=== PATIENT | female | born 1950 | race Caucasian/White ===

== ENCOUNTER → 2018-03-14 07:50 | Outpatient (CLI) | payer MEDICARE, OTHER, SELFPAY ==
[2018-03-14 09:01] LABS: Add Manual Diff / Slide Review NO; Basophils Percent Auto 0.6 % (0-2); Eosinophils Percent Auto 1.9 % (2-4); Hematocrit 42.9 % (36-46); Lymphocytes Percent Auto 54.5 % (25-40); Mean Corpuscular Volume 97.2 fL (80-100); Monocytes Percent Auto 6.2 % (3-14); Neutrophils Absolute Auto 2300 /uL (3000-5900); Neutrophils Percent Auto 36.8 % (50-75); Platelet Count 256 X10^3/uL (150-400); Red Blood Cell Count 4.42 X10^6/uL (4.0-5.2); Red Cell Distribution Width 12.9 % (11.6-14.8); White Blood Cell Count 6.2 X10^3/uL (4.5-11.0)
[2018-03-14 09:11] LABS: Alanine Aminotransferase 24 IU/L (9-52); Albumin 4.5 g/dL (3.5-5.0); Albumin Globulin Ratio 1.6 (1.0-2.8); Alkaline Phosphatase 37 U/L (38-126); Aspartate Aminotransferase 29 IU/L (14-36); Bilirubin Total 1.3 mg/dL (0.2-1.3); Blood Urea Nitrogen 15 mg/dL (7-17); Calcium 9.6 mg/dL (8.4-10.2); Carbon Dioxide 28 mmol/L (22-32); Chloride 105 mmol/L (98-107); Cholesterol 275 mg/dL (140-199); Estimated Glomerular Filt Rate 55.1 mL/min (>60); Globulin 2.8 g/dL (1.7-4.1); Glucose 95 mg/dL (80-110); HDL Cholesterol 86 mg/dL (40-60); HEMOLYSIS < 15 (0-50); LDL Cholesterol Calculated 175 mg/dL (<100); Potassium 4.4 mmol/L (3.4-5.1); Sodium 143 mmol/L (137-145); Total Protein 7.3 g/dL (6.3-8.2); Triglycerides 72 mg/dL (35-150)
[2018-03-14 09:30] LABS: Free T3, Triiodothyronine Free 2.69 pg/mL (2.77-5.27); Free T4, Direct Thyroxine 0.63 ng/dL (0.78-2.19)
[2018-03-14 09:44] LABS: Thyroid Stimulating Hormone 5.84 uIU/mL (0.47-4.68)
== END ==
PROVIDERS: PCP Internal Medicine; Visit Provider Internal Medicine
DX: E03.9 Hypothyroidism, unspecified (principal); R32 Unspecified urinary incontinence; E78.5 Hyperlipidemia, unspecified
CPT/HCPCS: 36415; 80053; 80061; 84439; 84443; 84481; 85025

== ENCOUNTER 2018-03-22 10:41 | Emergency (ER) | payer MEDICARE, OTHER, SELFPAY ==
[2018-03-22 10:45] VITALS: BP 131/87; PULSE 58; RESP 18; TEMP 36.1; O2SAT 100
--- NOTE | 2018-03-22 11:20 | ED_ITS ---
HPI - Trauma General Chief Complaint: Trauma Stated Complaint: FALL Time Seen by Provider: 03/22/18 11:20 Source: patient Mode of arrival: ambulatory Limitations: no limitations History of Present Illness HPI narrative: Patient is an otherwise healthy 59-year-old female here for evaluation of a fall that she sustained approximately 4 days ago. Patient states that she was walking in socks on a wood floor caring a glass of water when she slipped on a towel that was on the floor. She did state that she fell and hit her head. She is not on anticoagulation. She states she was dazed afterwards but did not lose consciousness. She also states that she hurt her left elbow. She did not come to be evaluated at that time. She has going about her daily activities for the past several days. She has developed bruising around both of her eyes and also on the left frontal portion of her forehead. She also states that she has generally had body aches since the event. No neck pain Related Data Home Medications Medication Instructions Recorded Confirmed cholecalciferol (vitamin D3) 2,000 iu PO Q DAY #0 09/17/11 03/22/18 [Vitamin D3] brimonidine [Alphagan P] 1 drp OPHTHALMIC (EYE) BID 03/22/18 03/22/18 brimonidine [Mirvaso] 1 applic TOPICAL DAILY 03/22/18 03/22/18 diazepam [Valium] 5 mg PO PRN 03/22/18 03/22/18 dorzolamide-timolol 1 drp OPHTHALMIC (EYE) BID 03/22/18 03/22/18 latanoprost 1 drp OPHTHALMIC (EYE) BEDTIME 03/22/18 03/22/18 zolpidem 10 mg PO BEDTIME PRN 03/22/18 03/22/18 Previous Rx's Medication Instructions Recorded dicyclomine 10 mg PO BID PRN #60 cap 06/06/17 atovaquone-proguanil [Malarone] 1 tab PO SEE INSTRUCTIONS #20 tab 08/23/17 levothyroxine 50 mcg tablet 25 mcg PO QAM #90 tab 02/10/18 Allergies Allergy/AdvReac Type Severity Reaction Status Date / Time TOPICAL ANTIBIOTICS Allergy Mild skin Uncoded 03/16/18 11:00 blistering and ulcerations 01/07/14 Review of Systems Constitutional Denies fatigue, Denies fever(s), Denies frequent falls, Reports headache(s) and Denies weakness Eyes Denies blurry vision, Denies change in vision, Denies diplopia, Denies irritation and Denies loss of vision ENT Ears, Nose, Mouth, and Throat: Denies dental pain, Denies vertigo, Denies dizziness, Reports headache(s) and Denies mouth pain Cardiovascular Denies chest pain, Denies syncope, Denies palpitations and Denies dyspnea Respiratory Denies cough and Denies dyspnea Gastrointestinal Gastrointestinal: Denies abdominal pain, Denies nausea and Denies vomiting Genitourinary Denies dysuria Musculoskeletal Denies myalgias, Denies arthralgias and Denies tingling Integumentary/Breasts Comments: Bruising on the left forehead and around both of her eyes. Neurologic Denies behavioral changes, Denies vertigo, Denies dizziness, Denies syncope, Denies frequent falls, Reports headache(s), Denies loss of vision, Denies seizure-like activity, Denies tingling, Denies paresthesias and Denies weakness Psychiatric Denies behavioral changes Endocrine Denies fatigue and Denies palpitations Hematologic/Lymphatic Denies easy bleeding and Denies easy bruising PFSH Medical History Hypothyroid (Acute) Surgical History No pertinent past surgical history (Acute) Social History Smoking Status: Never smoker Exam Initial Vital Signs Initial Vital Signs: Vital Signs Temperature 97.0 F L 03/22/18 10:45 Pulse Rate 58 L 03/22/18 10:45 Respiratory Rate 18 03/22/18 10:45 Blood Pressure 131/87 03/22/18 10:45 Pulse Oximetry 100 03/22/18 10:45 Const General: cooperative, healthy appearing, comfortable, well developed, well groomed and No acute distress Orientation: alert, awake and oriented x3 HENME Head: hematoma, No palpable skull fracture and raccoon eyes Ears: TM's normal bilaterally Nose: external nose normal Face and sinus: sinuses nontender, face symmetric, no abrasions, ecchymosis bilaterally and no edema Mouth: oral mucosae normal and tongue normal Teeth and gingiva: dentition normal Eyes Eyelids: eyelids normal Conjunctivae: conjunctivae normal Pupils: PERRL EOM: EOM intact bilaterally Resp Effort & Inspection: normal respiratory effort Auscultation: clear to auscultation bilaterally Cardio Rate: regular rate Rhythm: regular rhythm Pulses: radial pulses present GI Inspection: non-distended Palpation: soft Back/Spine/Pelvis Cervical Spine: No cervical muscular tenderness, No pain with cervical ROM, No step off deformity and No cervical ROM abnormal Skin General: ecchymosis Neuro General: alert and oriented x3 Cranial Nerves: CN's II-XI intact bilaterally Cognition: normal cognition Speech: speech normal Gait: normal gait Motor: muscle tone normal throughout Extrem General: normal to inspection and capillary refill normal Right upper extremity: normal to inspection Left upper extremity: normal to inspection Right lower extremity: normal to inspection Left lower extremity: normal to inspection Psych Appearance: grossly normal and well kempt Course Orders Ordered: ED Orders 03/22/18 11:51 CT facial bones wo con Stat CT head/brain wo con Stat Vital Signs - 8 hr 03/22/18 12:31 Pulse Rate 97 H Respiratory Rate 18 Blood Pressure [Left Arm] 121/84 Pulse Oximetry 97 MDM - Trauma Imaging Data CT facial bones: Radiologist's impression: PROCEDURE: CT FACIAL BONES WO CON INDICATIONS: fall with bilateral eye contusion TECHNIQUE: Noncontrast 2.5 mm thick axial images acquired from the mandible through the frontal sinuses, with coronal and sagittal reformatting. For radiation dose reduction, the following was used: automated exposure control, adjustment of mA and/or kV according to patient size. COMPARISON: None. FINDINGS: Image quality: Excellent. Bones and teeth: Orbital louis are intact. Sinus louis show no fracture or deformity. Nasal bones and septum are intact. Visualized portions of the mandible demonstrate no fractures or subluxation. Zygomatic arches are intact. Pterygoid plates are intact. Visualized portions of the skull base and auditory canals are intact. Sinuses: Paranasal sinuses are aerated, without fluid levels, mucosal thickening, or mucoceles. Mastoid air cells are aerated. Soft tissues: No edema, masses, or fluid collections. No enlarged lymph nodes. No soft tissue lacerations or debris. Vascular: Visualized vascular structures appear normal in the absence of contrast. Bony vascular foramina and canals are intact. IMPRESSION: No fracture. Dictated by: Pasha Salinas M.D. on 03/22/2018 at 12:04 Approved by: Pasha Salinas M.D. on 03/22/2018 at 12:05 CT scan - head: Radiologist's impression: PROCEDURE: CT HEAD/BRAIN WO CON INDICATIONS: fall with left frontal contusion TECHNIQUE: Noncontrast 4.5 mm thick angled axial sections acquired from the foramen magnum to the vertex, with coronal and sagittal reformats. For radiation dose reduction, the following was used: automated exposure control, adjustment of mA and/or kV according to patient size. COMPARISON: None. FINDINGS: Image quality: Excellent. CSF spaces: Basal cisterns are patent. No extra-axial fluid collections. The ventricles are symmetric in size and shape. Brain: No intracranial bleeds or masses. There is cerebral volume loss for age , with resultant ventricular and sulcal prominence. There is a 6 mm low density focus within the brainstem at the pontomedullary junction. There are periventricular and deep white matter chronic small vessel ischemic changes. There is intracranial internal carotid artery atherosclerosis. Skull and face: Left frontal scalp hematoma is present. Calvarium and visualized facial bones appear intact, without suspicious lesions. Sinuses: Visualized sinuses and mastoids are clear. IMPRESSION: 1. No acute intracranial abnormality. 2. Small indeterminate low density focus within the brainstem as described above , which may be related to a chronic infarct. Nonemergent brain MRI with and without intravenous contrast could be performed to further assess for less likely, more aggressive etiologies, if clinically indicated. Dictated by: Pasha Salinas M.D. on 03/22/2018 at 12:05 Approved by: Pasha Salinas M.D. on 03/22/2018 at 12:08 [facility] Narrative Medical decision making narrative: Patient without fracture seen on the CT scan. She does have ecchymosis around both her eyes. We did discuss this. She was given a projected course of her bruising. She has no restrictions. She was given return precautions. She expressed understanding and agreement with plan Discharge Plan Departure Patient Disposition: Home Clinical Impression: Contusion of scalp, Contusion of face, Fall Discharge Date/Time: 03/22/18 12:53 Interventions: ED Discharge Assessment Last Done: 03/22/18 12:53 Instructions: How to Prevent Falls Activity Restrictions/Additional Instructions: There was an incidental finding on the head CT today that carried with a recommendation for a nonemergent outpatient MRI. Discussed this with your primary care doctor at her next appointment. Return to the emergency department for any new or worsening symptoms Prescriptions: No Action cholecalciferol (vitamin D3) [Vitamin D3] 2,000 UNIT capsule 2,000 iu PO Q DAY Qty: 0 RF: 0 dicyclomine 10 MG capsule 10 mg PO BID PRNQty: 60 RF: 0 atovaquone-proguanil [Malarone] 250 MG/100 MG tablet 1 tab PO SEE INSTRUCTIONS Qty: 20 RF: 0 levothyroxine 50 mcg tablet 25 mcg PO QAM Qty: 90 RF: 2 latanoprost 0.005 % drops 1 drp ophthalmic (eye) BEDTIME RF: 0 dorzolamide-timolol 22.3-6.8 mg/mL drops 1 drp ophthalmic (eye) BID RF: 0 zolpidem 10 mg tablet 10 mg PO BEDTIME PRN (Reason: Insomnia) RF: 0 brimonidine [Alphagan P] 0.1 % drops 1 drp ophthalmic (eye) BID RF: 0 brimonidine [Mirvaso] 0.33 % gel with pump 1 applic Topical DAILY RF: 0 diazepam [Valium] 5 mg tablet 5 mg PO PRN RF: 0
--- NOTE | 2018-03-22 11:51 | DI.CT.S_ITS ---
PROCEDURE: CT FACIAL BONES WO CON INDICATIONS: fall with bilateral eye contusion TECHNIQUE: Noncontrast 2.5 mm thick axial images acquired from the mandible through the frontal sinuses, with coronal and sagittal reformatting. For radiation dose reduction, the following was used: automated exposure control, adjustment of mA and/or kV according to patient size. COMPARISON: None. FINDINGS: Image quality: Excellent. Bones and teeth: Orbital louis are intact. Sinus louis show no fracture or deformity. Nasal bones and septum are intact. Visualized portions of the mandible demonstrate no fractures or subluxation. Zygomatic arches are intact. Pterygoid plates are intact. Visualized portions of the skull base and auditory canals are intact. Sinuses: Paranasal sinuses are aerated, without fluid levels, mucosal thickening, or mucoceles. Mastoid air cells are aerated. Soft tissues: No edema, masses, or fluid collections. No enlarged lymph nodes. No soft tissue lacerations or debris. Vascular: Visualized vascular structures appear normal in the absence of contrast. Bony vascular foramina and canals are intact. IMPRESSION: No fracture. Dictated by: Pasha Salinas M.D. on 03/22/2018 at 12:04 Approved by: Pasha Salinas M.D. on 03/22/2018 at 12:05
--- NOTE | 2018-03-22 11:51 | DI.CT.S_ITS ---
PROCEDURE: CT HEAD/BRAIN WO CON INDICATIONS: fall with left frontal contusion TECHNIQUE: Noncontrast 4.5 mm thick angled axial sections acquired from the foramen magnum to the vertex, with coronal and sagittal reformats. For radiation dose reduction, the following was used: automated exposure control, adjustment of mA and/or kV according to patient size. COMPARISON: None. FINDINGS: Image quality: Excellent. CSF spaces: Basal cisterns are patent. No extra-axial fluid collections. The ventricles are symmetric in size and shape. Brain: No intracranial bleeds or masses. There is cerebral volume loss for age, with resultant ventricular and sulcal prominence. There is a 6 mm low density focus within the brainstem at the pontomedullary junction. There are periventricular and deep white matter chronic small vessel ischemic changes. There is intracranial internal carotid artery atherosclerosis. Skull and face: Left frontal scalp hematoma is present. Calvarium and visualized facial bones appear intact, without suspicious lesions. Sinuses: Visualized sinuses and mastoids are clear. IMPRESSION: 1. No acute intracranial abnormality. 2. Small indeterminate low density focus within the brainstem as described above, which may be related to a chronic infarct. Nonemergent brain MRI with and without intravenous contrast could be performed to further assess for less likely, more aggressive etiologies, if clinically indicated. Dictated by: Pasha Salinas M.D. on 03/22/2018 at 12:05 Approved by: Pasha Salinas M.D. on 03/22/2018 at 12:08
[2018-03-22 12:31] VITALS: BP 121/84; PULSE 97; RESP 18; O2SAT 97
== END 2018-03-22 12:53 | disposition home or self-care (01) ==
PROVIDERS: Emergency Provider Emergency Medicine; Family Provider Internal Medicine; PCP Internal Medicine
DX: S00.03XA Contusion of scalp, initial encounter (principal); S00.83XA Contusion of other part of head, initial encounter; W01.0XXA Fall on same level from slipping, tripping and stumbling without subsequent striking against object, initial encounter
CPT/HCPCS: 70450; 70486; 99282; 99284

== ENCOUNTER → 2018-04-18 13:01 | Outpatient (CLI) | payer MEDICARE, OTHER, SELFPAY ==
[2018-04-18 13:55] LABS: Estimated Glomerular Filt Rate > 60.0 mL/min (>60)
== END ==
PROVIDERS: Family Provider Internal Medicine; PCP Internal Medicine; Visit Provider Internal Medicine
DX: Z01.812 Encounter for preprocedural laboratory examination (principal)
CPT/HCPCS: 36415; 82565

== ENCOUNTER → 2018-04-19 15:54 | Outpatient (CLI) | payer MEDICARE, OTHER, SELFPAY ==
--- NOTE | 2018-04-19 15:57 | DI.MRI.S_ITS ---
PROCEDURE: MR HEAD/BRAIN WO/W CON INDICATIONS: abnormal CT TECHNIQUE: Noncontrast axial T1 spin echo, axial T2 fast spin echo, sagittal and axial FLAIR, coronal T2 fast spin echo, axial gradient echo, axial diffusion and ADC through the brain. After the administration of contrast, axial and coronal 3D VIBE or T1 spin echo with fat saturation through the brain. COMPARISON: [facility], CT, CT HEAD/BRAIN WO CON, 03/22/2018, 11:44. FINDINGS: Image quality: Excellent. CSF Spaces: Basal cisterns are patent. No extra-axial fluid collections. Ventricles are normal in size and shape. Brain: No midline shift. No intracranial bleeds or masses. No abnormal intracranial enhancement. The brainstem appears normal. Diffusion-weighted images demonstrate no acute ischemic insults. No chronic ischemic insults. Normal intravascular flow voids are present. Skull and face: Calvarial marrow is normal in signal. Orbits appear normal. Sinuses: Sinuses and mastoids appear clear. IMPRESSION: The medullary portion of the brainstem at the axial level of the foramen magnum is very well-visualized by this MR examination and no underlying lesion is identified. The prior CT scan had raise concern for a 6 mm hypodense lesion in that area and this area now is seen to be entirely normal. No followup recommended. Dictated by: Ever Ham M.D. on 04/19/2018 at 16:54 Approved by: Ever Ham M.D. on 04/19/2018 at 16:56
== END ==
PROVIDERS: Family Provider Internal Medicine; PCP Internal Medicine; Visit Provider Internal Medicine
DX: R93.0 Abnormal findings on diagnostic imaging of skull and head, not elsewhere classified (principal)
CPT/HCPCS: 70553

== ENCOUNTER → 2018-10-02 13:14 | Outpatient (CLI) | payer MEDICARE, OTHER, SELFPAY ==
--- NOTE | 2018-10-02 | DI.MG.S_ITS ---
BILATERAL DIGITAL SCREENING MAMMOGRAM 3D/2D WITH CAD: 10/02/2018 CLINICAL: Routine screening. Family history of breast cancer. Comparison is made to exams dated: 09/08/2017 mammogram, 08/13/2016 mammogram, and 07/16/2014 mammogram - [facility]. There are scattered fibroglandular elements in both breasts. Current study was also evaluated with a Computer Aided Detection (CAD) system. No significant masses, calcifications, or other findings are seen in either breast. There has been no significant interval change. IMPRESSION: NEGATIVE There is no mammographic evidence of malignancy. A 1 year screening mammogram is recommended. This exam was interpreted at Station ID: [id number]. NOTE: For mammograms, a report in lay terms will be sent to the patient. Approximately 15% of breast malignancies will not be visualized mammographically. In the management of a palpable breast mass, a negative mammogram must not discourage biopsy of a clinically suspicious lesion. Electronically Signed By: Ventura robb/ana:10/02/2018 17:36:03 letter sent: Normal Exam ACR BI-RADS Category 1: Negative [id number]
== END ==
PROVIDERS: Family Provider Internal Medicine; PCP Internal Medicine; Visit Provider Internal Medicine
DX: Z12.31 Encounter for screening mammogram for malignant neoplasm of breast (principal); Z80.3 Family history of malignant neoplasm of breast
CPT/HCPCS: 77063; 77067

== ENCOUNTER → 2019-07-09 14:32 | Outpatient (CLI) | payer MEDICARE, OTHER, SELFPAY | PROVIDERS: PCP Internal Medicine; Visit Provider Internal Medicine | DX: M85.88 Other specified disorders of bone density and structure, other site (principal); Z78.0 Asymptomatic menopausal state | CPT/HCPCS: 77080 ==

== ENCOUNTER → 2019-12-11 15:24 | Outpatient (CLI) | payer MEDICARE, OTHER, SELFPAY ==
[2019-12-12 09:24] LABS: COVID19 Sendout Not Detected (Not Detect)
== END ==
PROVIDERS: PCP Internal Medicine; Visit Provider Registered Nurse
DX: Z01.812 Encounter for preprocedural laboratory examination (principal)
CPT/HCPCS: 87635

== ENCOUNTER 2019-12-14 13:24 | Day surgery (SDC) | payer MEDICARE, OTHER, SELFPAY ==
--- NOTE | 2019-12-14 | PATH_ITS ---
[facility] Accession Number: [id number] . 01 Material submitted: . PART A: colon - ASCENDING COLON POLYP BIOPSY PART B: sigmoid colon - SIGMOID COLON POLYP BIOPSY . 02 Diagnosis: A. Ascending Colon Polyp, Biopsy: Portions of tubular adenoma x2. Superficial portion of colorectal mucosa x1 with no significant histomorphologic abnormality. . B. Sigmoid Colon Polyp, Biopsy: Hyperplastic polyp. MRV 12/17/2019 1510 Local . 02 Electronically signed: . Ynes Umana MD, Pathologist NPI- [id number] . 01 Gross description: . Part A: ASCENDING COLON POLYP BIOPSY: Received in formalin are 3 fragment(s) of serra, soft tissue measuring 0.1 x 0.1 x 0.1 cm to 0.2 x 0.1 x 0.1 cm submitted entirely in 1 cassette(s) Part B: SIGMOID COLON POLYP BIOPSY: Received in formalin is 1 fragment(s) of serra, soft tissue measuring 0.3 x 0.2 x 0.2 cm submitted entirely in 1 cassette(s) /MARIA LUZ 12/14/2019 2229 Local . 02 Pathologist provided ICD-10: Z12.11, K63.5 . 02 CPT . 709687, 808772 Performed at: 01 [facility] [address], [place], [place] [id number] MD Vel Shah MD Phone: [phone] Performed at: 02 [facility] [address] [place], [place] [id number] MD Lissy Sauer MD Phone: [phone]
--- NOTE | 2019-12-14 07:16 | P.OP.ENDO_ITS ---
Operative Date/Time/Diagnoses Date of procedure: 12/14/19 Time of procedure: 14:10 Pre-op diagnosis: 1. History of colon polyps 2. Family history of colon cancer 3. Screening for colon cancer 4. IBS, chronic Post-op diagnosis: other (Ascending polyp x1, 4 mm, removed with cold biopsy forceps, 2. Sigmoid polyp x1, 2 mm, removed with cold biopsy forceps) Procedure & Clinicians Study performed: 1. Colonoscopy Same procedure as scheduled: Yes Indications: 1. History of colon polyps 2. Family history of colon cancer 3. Screening for colon cancer 4. IBS, chronic Surgeon: Josefa Dumont Procedure Notes SCOAP/Timeout: 14:10 Procedure in detail: ENDOSCOPIST: Josefa Dumont MD Sedation RN: Nakia Rushing RN Sedation start time: 2:10 p.m. Sedation end time: 2:35 p.m. PROCEDURE: Colonoscopy with cold biopsy INDICATIONS: 1. History of colon polyps 2. Family history of colon cancer 3. Screening for colon cancer 4. IBS, chronic MEDICATION: Levsin 0.125 mg sublingual, incremental doses of Versed and f entanyl until appropriate level sedation achieved. ASA CLASS: 2 CECAL WITHDRAWAL TIME: 12 minutes COMPLICATIONS: None. EXTENT OF PROCEDURE: Cecum. QUALITY OF PREP: Good with portions of liquid stool. PROCEDURE: Prior to insertion of the colonoscope, a digital rectal examination was accomplished with circumferential palpation of the distal rectal mucosa without significant findings being noted. The high-definition colonoscope was passed into the rectum in the usual fashion and advanced over to the cecum without difficulty. The ileocecal valve, appendiceal stoma, and medial wall all could be inspected and no abnormalities were seen. ASCENDING COLON: As the colonoscope was withdrawn, care was taken to expose and inspect the haustral folds and a 4 mm sessile polyp was seen and removed with cold biopsy forceps. HEPATIC FLEXURE: Normal, no polyps, diverticula or other abnormalities. TRANSVERSE COLON: Normal, no polyps, diverticula or other abnormalities. DESCENDING COLON: Normal, no polyps, diverticula or other abnormalities. SIGMOID COLON: 2 mm polyp removed with cold biopsy forceps. Otherwise, normal, no polyps, diverticula or other abnormalities. RECTUM: Normal. J maneuver was produced. There was no significant perianal disease. The J maneuver was broken. The remainder of the rectum was inspected and there was no external hemorrhoid disease. The scope was withdrawn. IMPRESSION: 1. Ascending polyp x1, 4 mm, removed with cold biopsy forceps 2. Sigmoid polyp x1, 2 mm, removed with cold biopsy forceps PLAN: 1. Follow-up in clinic status post pathology results. The possibility of a missed lesion including a malignancy has been discussed with the patient previously. Potential alarm symptoms have been discussed and should be reported immediately. Complications: none Post-procedure Recommendations: Will call with biopsy results Follow up: weeks (2) Disposition: PACU
--- NOTE | 2019-12-14 07:16 | P.HP_ITS ---
History of Present Illness History of Present Illness Date Patient Seen: 12/14/19 Time Patient Seen: 13:30 Chief complaint: [id number] Narrative: 69 year old female comes in today for consideration of a screening colonoscopy. One previous lifetime colonoscopy, significant for polyps, pathology not available at time of dictation. Medical history significant for chronic IBS, treated with dicyclomine 10 mg p.o. b.i.d. as needed. Otherwise, there have been no lower GI symptoms suggesting disease such as change in bowel habits, bleeding, abdominal pain or anemia. Mother at 86 from colon cancer. Overall health issues have been stable, including no major cardiac events for at least 6 weeks. 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 Patient History Medical History Asthma (Chronic ~1985) Chicken pox (Resolved ~1954) Eczema (Chronic ~1955) Foot pain (Chronic) Hearing deficit (Chronic) Hypothyroid (Chronic) Measles (Resolved ~1955) Mumps (Resolved ~1960) Rubella (Resolved ~1950) Seasonal allergies (Chronic) Surgical History No pertinent past surgical history (Acute) Family & Social History Family History Brother No problems noted. Father No problems noted. Mother No problems noted. Tobacco & Substance use: Smoking Status Never smoker alcohol intake frequency 0-2 drinks per day Substance Use Type does not use Meds Home Medications and Allergies Home Medications Medication Instructions Recorded Confirmed Type cholecalciferol (vitamin D3) 2,000 iu PO Q DAY #0 09/17/11 12/14/19 History [Vitamin D3] levothyroxine 50 mcg tablet 25 mcg PO QAM #90 tab 02/10/18 12/14/19 Rx brimonidine [Alphagan P] 1 drp OPHTHALMIC (EYE) BID 03/22/18 12/14/19 History brimonidine [Mirvaso] 1 applic TOPICAL DAILY 03/22/18 12/14/19 History diazepam [Valium] 5 mg PO PRN 03/22/18 12/14/19 History dorzolamide-timolol 1 drp OPHTHALMIC (EYE) BID 03/22/18 12/14/19 History latanoprost 1 drp OPHTHALMIC (EYE) BEDTIME 03/22/18 12/14/19 History zolpidem 10 mg PO BEDTIME PRN 03/22/18 12/14/19 History atorvastatin 10 mg tablet 10 mg PO DAILY #30 tab 04/10/18 12/14/19 Rx dicyclomine 10 mg capsule 10 mg PO BID PRN #60 cap 05/01/18 12/14/19 Rx Allergies Allergy/AdvReac Type Severity Reaction Status Date / Time TOPICAL ANTIBIOTICS Allergy Mild skin Uncoded 12/14/19 13:40 blistering and ulcerations 01/07/14 Review of Systems Review of Systems ROS: Yes All systems reviewed with the patient and are negative except as otherwise documented Exam Narrative Exam Narrative: GENERAL: Alert and oriented, appearing stated age and in no acute distress. HEENT: Head normocephalic/atraumatic. Pupils equal, round, and reactive to light and accomodation. Extraocular muscles intact. Tympanic membranes clear. Nasal mucosa moist, septum midline. Oral mucosa moist, no lesions. Neck soft and supple, no lymphadenopathy. LUNGS: Clear to ausculation bilaterally, no wheezes, rhonchi or rales. CV: Normal S1 and S2 with regular rate and rhythm, no audible murmurs, rubs or gallops. ABDOMEN: Soft, non-tender, non-distended, no organomegaly. Positive bowel sounds. EXTREMITIES: No clubbing, cyanosis, or edema. NEURO: Cranial nerves II through XII grossly intact, no focal deficits. PSYCH: Alert and oriented x 3. SKIN: No concerning lesions. Assessment & Plan Assessment & Plan narrative: 1. History of colon polyps 2. Family history of colon cancer 3. Screening for colon cancer 4. IBS, chronic Plan for colonoscopy. The nature and character of the procedure as well as anticipated results were discussed. The possibility of not completing the procedure was also discussed. Possible complications including aspiration pneumonia, bleeding, perforation and reaction to medications either for sedation or preparation and missed lesions were discussed. Questions were answered and proceeding to the colonoscopy was elected. Informed consent signed. I sincerely appreciate the referral allowing me to participate in this patient's care. Please contact me with any questions or concerns.
[2019-12-14] MEDS: HYOSCYAMINE 0.125 MG TABLET PO (13:41)
[2019-12-14] MEDS: LACTATED RINGERS 1,000 ML 200 ML IV (13:41)
[2019-12-14 13:47] VITALS: BP 140/86; PULSE 54; RESP 16; TEMP 36.7; O2SAT 96
[2019-12-14] MEDS: MIDAZOLAM 5 MG/5 ML VIAL IV (14:09)
[2019-12-14] MEDS: fentaNYL 250 MCG/5 ML INJ IV (14:10)
[2019-12-14 14:39] VITALS: BP 104/69; PULSE 59; RESP 15; TEMP 36.2; O2SAT 97
[2019-12-14 14:44] VITALS: BP 108/76; PULSE 72; RESP 15; O2SAT 98
[2019-12-14 14:49] VITALS: BP 111/75; PULSE 53; RESP 13; O2SAT 98
[2019-12-14 14:55] VITALS: BP 113/78; PULSE 52; RESP 16; TEMP 36.3; O2SAT 100
[2019-12-14 15:08] VITALS: BP 118/74; PULSE 55; RESP 16; TEMP 36.8; O2SAT 99
== END 2019-12-14 15:11 | disposition home or self-care (01) ==
PROVIDERS: PCP Internal Medicine; Referring Provider Student in an Organized Health Care Education/Training Program; Visit Provider Student in an Organized Health Care Education/Training Program
PROC: 0DJD8ZZ Inspection of Lower Intestinal Tract, Via Natural or Artificial Opening Endoscopic (ICD-10-PCS; CPT 45378; principal; 2019-12-14 14:30)
DX: Z12.11 Encounter for screening for malignant neoplasm of colon (principal); Z80.0 Family history of malignant neoplasm of digestive organs; Z86.010 Personal history of colon polyps; K58.9 Irritable bowel syndrome, unspecified; E78.5 Hyperlipidemia, unspecified; E03.9 Hypothyroidism, unspecified; J45.909 Unspecified asthma, uncomplicated; D12.2 Benign neoplasm of ascending colon
CPT/HCPCS: 45380; J2250; J3010

== ENCOUNTER → 2019-12-18 09:07 | Outpatient (CLI) | payer MEDICARE, OTHER, SELFPAY ==
--- NOTE | 2019-12-18 | DI.MG.S_ITS ---
BILATERAL DIGITAL SCREENING MAMMOGRAM 3D/2D WITH CAD: 12/18/2019 CLINICAL: Routine screening. Family history of breast cancer. Comparison is made to exams dated: 10/02/2018 mammogram, 09/08/2017 mammogram, 08/13/2016 mammogram, 07/16/2014 mammogram, and 01/10/2014 mammogram - [facility]. There are scattered fibroglandular elements in both breasts. Current study was also evaluated with a Computer Aided Detection (CAD) system. No significant masses, calcifications, or other findings are seen in either breast. There has been no significant interval change. IMPRESSION: NEGATIVE There is no mammographic evidence of malignancy. A 1 year screening mammogram is recommended. This exam was interpreted at Station ID: [id number]. NOTE: For mammograms, a report in lay terms will be sent to the patient. Approximately 15% of breast malignancies will not be visualized mammographically. In the management of a palpable breast mass, a negative mammogram must not discourage biopsy of a clinically suspicious lesion. Electronically Signed By: Bong campa/ana:12/18/2019 10:25:12 letter sent: Normal Exam ACR BI-RADS Category 1: Negative 3341F
== END ==
PROVIDERS: PCP Internal Medicine; Referring Provider Internal Medicine; Visit Provider Internal Medicine
DX: Z12.31 Encounter for screening mammogram for malignant neoplasm of breast (principal); Z80.3 Family history of malignant neoplasm of breast
CPT/HCPCS: 77063; 77067

== ENCOUNTER 2020-11-23 09:29 | Emergency (ER) | payer MEDICARE, OTHER, SELFPAY ==
[2020-11-23 09:45] VITALS: BP 129/77; PULSE 59; RESP 12; TEMP 36.8; O2SAT 98
--- NOTE | 2020-11-23 10:07 | ED_ITS ---
HPI - Skin/Abscess/Foreign Bdy General Chief complaint: Skin/Abscess/Foreign Body Stated complaint: infection right hand Time Seen by Provider: 11/23/20 10:04 Source: patient Mode of arrival: Ambulatory History of Present Illness HPI narrative: Patient here for likely infection of a wound on dorsum of the right hand. Patient injured her skin last Tuesday walking her dog. The leash tore at the hand. She was seen the following day at Urgent Care. Steri-Strips and tetanus shot given only. No antibiotics. Noticed in last couple days redness and swelling and slight discharge. Patient has been rinsing wound with water. No topical antibiotic because she states she is allergic to it. Related Data Home Medications Medication Instructions Recorded Confirmed cholecalciferol (vitamin D3) 2,000 iu PO Q DAY #0 09/17/11 11/17/20 [Vitamin D3] brimonidine 1 applic TOPICAL DAILY 03/22/18 11/17/20 brimonidine 1 drp OPHTHALMIC (EYE) BID 03/22/18 11/17/20 diazepam [Valium] 5 mg PO PRN 03/22/18 11/17/20 dorzolamide-timolol 1 drp OPHTHALMIC (EYE) BID 03/22/18 11/17/20 latanoprost 1 drp OPHTHALMIC (EYE) BEDTIME 03/22/18 11/17/20 zolpidem 10 mg PO BEDTIME PRN 03/22/18 11/17/20 Previous Rx's Medication Instructions Recorded levothyroxine 50 mcg tablet 25 mcg PO QAM #90 tab 02/10/18 atorvastatin 10 mg tablet 10 mg PO DAILY #30 tab 04/10/18 dicyclomine 10 mg capsule 10 mg PO BID PRN #60 cap 05/01/18 doxycycline monohydrate 100 mg PO BID #20 cap 11/23/20 Allergies Allergy/AdvReac Type Severity Reaction Status Date / Time TOPICAL ANTIBIOTICS Allergy Mild skin Uncoded 11/23/20 09:47 blistering and ulcerations 01/07/14 Review of Systems Review of Systems Narrative: GENERAL: Denies chills, fatigue, malaise, fever, sweats. HEENT: Denies sinus pain, ear pain, sore throat RESPIRATORY: Denies dyspnea, cough CARDIOVASCULAR: Denies chest pain, palpitations GASTROINTESTINAL: Denies nausea, vomiting, abdominal pain : Denies dysuria, frequency, hematuria MUSCULOSKELETAL: Complains muscle denies bony pain SKIN: Denies rash, skin lesions, complains of skin injury NEUROLOGIC: Denies weakness, numbness ROS Unobtainable: All systems reviewed & are unremarkable except as noted in HPI and below Patient History Medical History Asthma (~1985) Chicken pox (~1954) Eczema (~1955) Foot pain Hearing deficit Hypothyroid Measles (~1955) Mumps (~1960) Rubella (~1950) Seasonal allergies Surgical History No pertinent past surgical history Family History Brother No problems noted. Father No problems noted. Mother No problems noted. Social History household members: spouse Smoking Status: Never smoker alcohol intake: current Smoking Status: Never smoker alcohol intake frequency: 0-2 drinks per day Substance Use Type: does not use Exam Narrative Exam Narrative: GENERAL: in no distress, not toxic not dyspneic HEAD: Normocephalic. EXTREMITIES: No gross deformities. Examination right hand. There is a semicircular skin tear at the lateral aspect of the dorsum of right hand. Fingers nontender. Hand is warm soft and pink. Light touch intact to fingers and thumb. At the skin injury/skin tear it is slightly dehisced. Small granulation tissue/serous fluid at the opening. No bone or tendon or muscle injury seen. There is surrounding erythema. No red streaking proximally or distally from the site. NEURO: AOx4. PSYCH: Not anxious, is cooperative Initial Vital Signs Initial Vital Signs: Vital Signs Temperature 98.2 F 11/23/20 09:45 Pulse Rate 59 L 11/23/20 09:45 Respiratory Rate 12 11/23/20 09:45 Blood Pressure 129/77 11/23/20 09:45 Pulse Oximetry 98 11/23/20 09:45 Course Orders Ordered: ED Orders 11/23/20 10:10 Wound Culture and Gram Stain Stat Discontinued Medications Doxycycline Hyclate (Doxycycline Hyclate 100 Mg Tablet) 100 mg PO NOW ONE Stop: 11/23/20 10:08 Last Admin: 11/23/20 10:20 Dose: 100 mg Documented by: GERONIMO Reevaluation(s) Reevaluation #1: Reviewed treatment plan with patient. She understands she needs to continue cleaning the wound daily. Time: 10:14 Vital Signs Vital signs: Vital Signs - 8 hr 11/23/20 09:45 Temperature 98.2 F Pulse Rate 59 L Respiratory Rate 12 Blood Pressure 129/77 Pulse Oximetry 98 MDM - Skin/Abscess/Foreign Bdy Differential Diagnosis Differential diagnosis: Likely cellulitis and other (Infected wound) MDM Narrative Medical decision making narrative: No fever. Exam reassuring. No laboratory studies indicated this time. Patient agrees. No imaging as well. Patient agrees. Not toxic. Patient does have a family doctor to follow up with. Discharge Plan Departure Patient Disposition: Home Clinical Impression: Infected skin tear Instructions: DI for Wound Infection Activity Restrictions/Additional Instructions: Clean wound daily with warm soap and water. Apply a nonocclusive dressing to protect skin. Keep it out of sun exposure. May shower but no submersion of the hand under water. See family doctor this week for recheck of your skin wound. [facility] Prescriptions: New doxycycline monohydrate 100 mg capsule 100 mg PO BID Qty: 20 RF: 0 No Action cholecalciferol (vitamin D3) [Vitamin D3] 2,000 UNIT capsule 2,000 iu PO Q DAY Qty: 0 RF: 0 levothyroxine 50 mcg tablet 25 mcg PO QAM Qty: 90 RF: 2 dicyclomine 10 mg capsule 10 mg PO BID PRN (Reason: IBS) Qty: 60 RF: 0 atorvastatin 10 mg tablet 10 mg PO DAILY Qty: 30 RF: 3 latanoprost 0.005 % drops 1 drp ophthalmic (eye) BEDTIME RF: 0 dorzolamide-timolol 22.3-6.8 mg/mL drops 1 drp ophthalmic (eye) BID RF: 0 zolpidem 10 mg tablet 10 mg PO BEDTIME PRN (Reason: Insomnia) RF: 0 brimonidine 0.1 % drops 1 drp ophthalmic (eye) BID RF: 0 brimonidine 0.33 % gel with pump 1 applic Topical DAILY RF: 0 diazepam [Valium] 5 mg tablet 5 mg PO PRN RF: 0 Referrals: Ariadna Otero ARNP [Primary Care Provider] -
[2020-11-23] MEDS: DOXYCYCLINE HYCLATE 100 MG TABLET PO (10:20)
--- NOTE | 2020-11-23 10:23 | PC.NURSE ---
cleansed wound with hibiclens and saline, covered with nonadherent gauze and roll gauze, wound swab culture collected prior to wound care. pt tolerated procedure well.
== END 2020-11-23 10:27 | disposition home or self-care (01) ==
PROVIDERS: Emergency Provider Emergency Medicine; PCP Internal Medicine
DX: L08.9 Local infection of the skin and subcutaneous tissue, unspecified (principal)
CPT/HCPCS: 87070; 87075; 87186; 87205; 99283

== ENCOUNTER → 2020-12-18 08:24 | Outpatient (CLI) | payer MEDICARE, OTHER, SELFPAY ==
--- NOTE | 2020-12-18 | DI.MG.S_ITS ---
BILATERAL DIGITAL SCREENING MAMMOGRAM 3D/2D WITH CAD: 12/18/2020 CLINICAL: Routine screening. Family history of breast cancer. Comparison is made to exams dated: 12/18/2019 mammogram, 10/02/2018 mammogram, and 09/08/2017 mammogram - [facility]. There are scattered fibroglandular elements in both breasts. Current study was also evaluated with a Computer Aided Detection (CAD) system. No significant masses, calcifications, or other findings are seen in either breast. There has been no significant interval change. IMPRESSION: NEGATIVE There is no mammographic evidence of malignancy. A 1 year screening mammogram is recommended. This exam was interpreted at Station ID: [id number]. NOTE: For mammograms, a report in lay terms will be sent to the patient. Approximately 15% of breast malignancies will not be visualized mammographically. In the management of a palpable breast mass, a negative mammogram must not discourage biopsy of a clinically suspicious lesion. Electronically Signed By: Ventura robb/ana:12/18/2020 08:40:08 letter sent: Normal Exam ACR BI-RADS Category 1: Negative 3341F
== END ==
PROVIDERS: PCP Internal Medicine; Referring Provider Internal Medicine; Visit Provider Internal Medicine
DX: Z12.31 Encounter for screening mammogram for malignant neoplasm of breast (principal); Z80.3 Family history of malignant neoplasm of breast
CPT/HCPCS: 77063; 77067

== ENCOUNTER → 2021-10-22 13:17 | Outpatient (CLI) | payer MEDICARE, OTHER, SELFPAY | PROVIDERS: Family Provider Internal Medicine; PCP Internal Medicine; Referring Provider Internal Medicine; Visit Provider Internal Medicine | DX: G62.9 Polyneuropathy, unspecified (principal) | CPT/HCPCS: 95886; 95910 ==

== ENCOUNTER → 2021-12-25 13:01 | Outpatient (CLI) | payer MEDICARE, OTHER, SELFPAY ==
--- NOTE | 2021-12-25 | DI.MG.S_ITS ---
BILATERAL DIGITAL SCREENING MAMMOGRAM 3D/2D WITH CAD: 12/25/2021 CLINICAL: Routine screening. Family history of breast cancer. Comparison is made to exams dated: 12/18/2020 mammogram, 12/18/2019 mammogram, and 10/02/2018 mammogram - [facility]. There are scattered fibroglandular elements in both breasts. Current study was also evaluated with a Computer Aided Detection (CAD) system. No significant masses, calcifications, or other findings are seen in either breast. There has been no significant interval change. IMPRESSION: NEGATIVE There is no mammographic evidence of malignancy. A 1 year screening mammogram is recommended. Based on the Tyrer Cuzick model (a risk assessment model) the patient's lifetime risk is 7.6% and her 10 year risk is 5.7%. According to the ACR, ACS, and NCCN guidelines, an annual breast MRI exam along with mammogram is recommended if the patient's lifetime risk is 20% or greater. This exam was interpreted at Station ID: [id number]. NOTE: For mammograms, a report in lay terms will be sent to the patient. Approximately 15% of breast malignancies will not be visualized mammographically. In the management of a palpable breast mass, a negative mammogram must not discourage biopsy of a clinically suspicious lesion. Electronically Signed By: Miriam cevallos/ana:12/25/2021 13:52:15 letter sent: Normal Exam ACR BI-RADS Category 1: Negative 3341F
== END ==
PROVIDERS: Family Provider Internal Medicine; PCP Internal Medicine; Referring Provider Internal Medicine; Visit Provider Internal Medicine
DX: Z12.31 Encounter for screening mammogram for malignant neoplasm of breast (principal); Z80.3 Family history of malignant neoplasm of breast
CPT/HCPCS: 77063; 77067

== ENCOUNTER → 2022-07-03 08:04 | Outpatient (CLI) | payer MEDICARE, OTHER, SELFPAY ==
[2022-07-03 09:21] LABS: Cholesterol 206 mg/dL (140-199); HDL Cholesterol 102 mg/dL (40-60); LDL Cholesterol Calculated 94 mg/dL (<100); Triglycerides 50 mg/dL (35-150)
[2022-07-03 09:56] LABS: Thyroid Stimulating Hormone 1.37 uIU/mL (0.47-4.68)
[2022-07-03 10:14] LABS: Vitamin B12 > 1000 pg/mL (239-931)
== END ==
PROVIDERS: Family Provider Internal Medicine; PCP Internal Medicine; Referring Provider Internal Medicine; Visit Provider Internal Medicine
DX: E78.5 Hyperlipidemia, unspecified (principal); E03.9 Hypothyroidism, unspecified; E53.8 Deficiency of other specified B group vitamins
CPT/HCPCS: 36415; 80061; 82607; 84443

== ENCOUNTER → 2022-07-15 10:48 | Outpatient (CLI) | payer MEDICARE, OTHER, SELFPAY | PROVIDERS: Family Provider Internal Medicine; PCP Internal Medicine; Referring Provider Internal Medicine; Visit Provider Internal Medicine | DX: Z78.0 Asymptomatic menopausal state (principal); Z13.820 Encounter for screening for osteoporosis; M85.88 Other specified disorders of bone density and structure, other site | CPT/HCPCS: 77080 ==

== ENCOUNTER → 2023-01-03 10:58 | Outpatient (CLI) | payer MEDICARE, OTHER, SELFPAY ==
--- NOTE | 2023-01-03 | DI.MG.S_ITS ---
BILATERAL DIGITAL SCREENING MAMMOGRAM 3D/2D WITH CAD: 01/03/2023 CLINICAL: Routine screening. Family history of breast cancer. Comparison is made to exams dated: 12/25/2021 mammogram, 12/18/2020 mammogram, and 12/18/2019 mammogram - [facility]. There are scattered areas of fibroglandular density in both breasts (category b / 25%-50% glandular tissue). Current study was also evaluated with a Computer Aided Detection (CAD) system. No significant masses, calcifications, or other findings are seen in either breast. There has been no significant interval change. IMPRESSION: NEGATIVE There is no mammographic evidence of malignancy. A 1 year screening mammogram is recommended. Based on the Tyrer Cuzick model (a risk assessment model) the patient's lifetime risk is 7.1% and her 10 year risk is 5.9%. According to the ACR, ACS, and NCCN guidelines, an annual breast MRI exam along with mammogram is recommended if the patient's lifetime risk is 20% or greater. This exam was interpreted at Station ID: [id number]. NOTE: For mammograms, a report in lay terms will be sent to the patient. Approximately 15% of breast malignancies will not be visualized mammographically. In the management of a palpable breast mass, a negative mammogram must not discourage biopsy of a clinically suspicious lesion. Electronically Signed By: Harsh smith/ana:01/03/2023 12:02:07 letter sent: Normal Exam ACR BI-RADS Category 1: Negative 3341F
== END ==
PROVIDERS: Family Provider Internal Medicine; PCP Internal Medicine; Referring Provider Internal Medicine; Visit Provider Internal Medicine
DX: Z12.31 Encounter for screening mammogram for malignant neoplasm of breast (principal); Z80.3 Family history of malignant neoplasm of breast
CPT/HCPCS: 77063; 77067

== ENCOUNTER → 2023-03-16 09:37 | Outpatient (CLI) | payer MEDICARE, OTHER, SELFPAY ==
--- NOTE | 2023-03-16 09:38 | DI.RAD.S_ITS ---
PROCEDURE: XR LUMBAR SPINE MIN 4V INDICATIONS: back pain TECHNIQUE: 5 views of the lumbar spine were acquired, including bilateral oblique views. COMPARISON: None. FINDINGS: Bones: 5 nonrib-bearing vertebrae are present. Grade 1 anterolisthesis of L4 on L5. Moderate disc height loss at all levels. Facet arthrosis L3 through S1. Slight rightward curvature of the lumbar spine. Soft tissues: Overlying bowel gas pattern is normal. No suspicious soft tissue calcifications. Oblique images: No pars defects. IMPRESSION: Moderate, multilevel degenerative disc disease and lower lumbar facet arthrosis. Grade 1 anterolisthesis of L4 on L5. Dictated by: Carlos Alberto Judd M.D. on 03/16/2023 at 10:10 Approved by: Carlos Alberto Judd M.D. on 03/16/2023 at 10:17
== END ==
PROVIDERS: Family Provider Internal Medicine; PCP Internal Medicine; Referring Provider Physical Medicine & Rehabilitation; Visit Provider Physical Medicine & Rehabilitation
DX: M51.36 Other intervertebral disc degeneration, lumbar region (principal); M47.816 Spondylosis without myelopathy or radiculopathy, lumbar region; M47.817 Spondylosis without myelopathy or radiculopathy, lumbosacral region; M43.16 Spondylolisthesis, lumbar region; M54.9 Dorsalgia, unspecified; S76.319A Strain of muscle, fascia and tendon of the posterior muscle group at thigh level, unspecified thigh, initial encounter; M17.11 Unilateral primary osteoarthritis, right knee
CPT/HCPCS: 72110; 99214

== ENCOUNTER → 2023-03-25 12:10 | Outpatient (CLI) | payer MEDICARE, OTHER, SELFPAY ==
--- NOTE | 2023-03-25 12:11 | DI.MRI.S_ITS ---
PROCEDURE: MR LUMBAR SPINE WO CON INDICATIONS: Lumbosacral spondylosis with right hip pain TECHNIQUE: Noncontrast sagittal T1 spin echo and T2 fast echo, sagittal STIR, and T2 fast spin echo through the lumbar spine. In cases with scoliosis, additional coronal T2 fast spin echo may be performed. COMPARISON: None. FINDINGS: Image quality: Excellent. Alignment and Curvature: There is normal bony alignment. Bone Marrow: Marrow is of normal overall signal. No acute vertebral body compression fractures. Spinal Cord: Conus medullaris terminates at the L1 level. Visualized cord demonstrates normal signal and size. Paraspinous Soft Tissues: No paravertebral masses. T12-L1: No significant disc bulge. The foramina and central canal are patent. L1-L2: No significant disc bulge. The foramina and central canal are patent. L2-L3: Diffuse disc bulge causes mild bilateral foraminal stenosis and mild central canal stenosis. L3-L4: Disc space narrowing and diffuse disc bulge with facet hypertrophy causes moderate bilateral foraminal stenosis. The central canal has mild stenosis. L4-L5: Bilateral pars defects with grade 1 anterolisthesis. Diffuse disc bulge and facet hypertrophy on the right cause severe right foraminal stenosis and moderate left foraminal stenosis. The central canal is patent. L5-S1: Diffuse disc bulge and facet hypertrophy cause mild bilateral foraminal stenosis. The central canal is patent. IMPRESSION: 1. Multilevel lumbar spondylosis causes foraminal stenosis as detailed above. 2. Mild central canal stenosis at L2-3 and L3-4. Dictated by: Blade Dunne M.D. on 03/25/2023 at 14:30 Approved by: Blade Dunne M.D. on 03/25/2023 at 14:34
--- NOTE | 2023-03-25 12:11 | DI.MRI.S_ITS ---
PROCEDURE: MR HIP RT WO CON INDICATIONS: Probable proximal hamstring tear TECHNIQUE: Noncontrast coronal T1 spin echo and STIR through the bony pelvis. Coronal and axial T2 fast spin echo with fat saturation, sagittal T1 spin echo, and oblique axial T2 fast spin echo with fat saturation through the hip. COMPARISON: None. FINDINGS: Image quality: Excellent. Bones and joints: Moderate bilateral hip joint osteoarthritic changes are seen with joint space narrowing, subchondral sclerosis and lateral marginal osteophyte formation. No fracture or dislocation. No avascular necrosis of the femoral heads. The visualized lower lumbar spine appears normally aligned. Tendons and ligaments: Low-grade partial-thickness tear involving distal right gluteus medius tendon at its insertion on greater trochanter is seen. Tendinosis involving distal right gluteus minimus is also noted. The nearby proximal iliotibial band also appears intact. The iliopsoas tendon appears intact, without adjacent bursal fluid collections or evidence for impingement syndrome. There is full-thickness rupture involving origins of common tendon origin of semitendinosis and biceps femoris at ischial tuberosity with up to 1.5 cm distal retraction of torn tendon fibers and moderate amount of surrounding fluid. Moderate to high-grade partial-thickness tear involving origin of semimembranosus at ischial tuberosity is also seen. Labrum and cartilage: Thinning of articulating cartilages in right femoral head is seen. Fraying and signal abnormality involving superior anterior labrum at 12 to 2 o'clock position is seen suggestive of superior anterior labral tear. The alpha angle of the femur is within normal limits at less than 55 degrees. Soft tissues: Visualized muscles demonstrate normal bulk and internal signal. Quadratus femoris muscle demonstrates no internal edema to suggest ischiofemoral impingement. The proximal sciatic neurovascular bundle appears normal adjacent to the hamstring tendons. No free pelvic fluid. Bladder wall thickness is normal. Genitourinary structures and bowel loops appear normal where visualized. IMPRESSION: 1. Full-thickness rupture involving common tendon origin of biceps femorals and semitendinosis at ischial tuberosity with up to 1.5 cm distal retraction of torn tendon fibers and moderate amount of surrounding fluid and soft tissue edema. Moderate to high-grade partial-thickness tear involving origin of semimembranosus at ischial tuberosity. 2. Low-grade partial thickness tear involving distal gluteus medius tendon at greater trochanter. Distal right gluteus minimus tendinosis. 3. Moderate bilateral hip joint osteoarthritis. No pelvic or hip fracture. No evidence of avascular necrosis. 4. Suggestion of superior anterior right hip labral tear at 12 to 2 o'clock position. Dictated by: Basil Rodriguez M.D. on 03/25/2023 at 15:13 Approved by: Basil Rodriguez M.D. on 03/25/2023 at 15:28
== END ==
PROVIDERS: Family Provider Internal Medicine; PCP Internal Medicine; Referring Provider Physical Medicine & Rehabilitation; Visit Provider Physical Medicine & Rehabilitation
DX: M43.16 Spondylolisthesis, lumbar region (principal); M48.061 Spinal stenosis, lumbar region without neurogenic claudication; M16.0 Bilateral primary osteoarthritis of hip; S76.311A Strain of muscle, fascia and tendon of the posterior muscle group at thigh level, right thigh, initial encounter; S76.811A Strain of other specified muscles, fascia and tendons at thigh level, right thigh, initial encounter; X58.XXXA Exposure to other specified factors, initial encounter
CPT/HCPCS: 72148; 73721

== ENCOUNTER → 2023-08-16 12:34 | Outpatient (CLI) | payer MEDICARE, OTHER, SELFPAY ==
--- NOTE | 2023-08-16 12:37 | DI.RAD.S_ITS ---
PROCEDURE: XR KNEE RT 3V INDICATIONS: Knee DJD TECHNIQUE: 3 views of the knee were acquired. COMPARISON: None. FINDINGS: Bones: Decreased mineralization. No acute fractures. Normal bone alignment. Mild tricompartment joint space loss. No suspicious bone lesions. Soft tissues: No joint effusion. No suspicious soft tissue calcifications. IMPRESSION: No acute bony abnormality or significant effusion. Dictated by: Gracia Wayne M.D. on 08/16/2023 at 18:43 Approved by: Gracia Wayne M.D. on 08/16/2023 at 18:44
--- NOTE | 2023-08-16 12:37 | DI.RAD.S_ITS ---
PROCEDURE: XR KNEE LT 3V INDICATIONS: Knee DJD TECHNIQUE: 3 views of the knee were acquired. COMPARISON: [facility], CR, XR KNEE RT 3V, 08/16/2023, 12:42. FINDINGS: Bones: Mildly decreased mineralization. No fracture or dislocation. Mild tricompartment joint space loss. No suspicious bone lesions. Soft tissues: No joint effusion. No suspicious soft tissue calcifications. IMPRESSION: No acute bony abnormality or significant effusion. Dictated by: Gracia Wayne M.D. on 08/16/2023 at 18:44 Approved by: Gracia Wayne M.D. on 08/16/2023 at 18:44
== END ==
PROVIDERS: Family Provider Internal Medicine; PCP Internal Medicine; Referring Provider Physical Medicine & Rehabilitation; Visit Provider Physical Medicine & Rehabilitation
DX: M17.11 Unilateral primary osteoarthritis, right knee (principal)
CPT/HCPCS: 73562

== ENCOUNTER → 2024-01-30 14:04 | Outpatient (CLI) | payer MEDICARE, OTHER, SELFPAY ==
--- NOTE | 2024-01-30 14:07 | DI.MG.S_ITS ---
BILATERAL DIGITAL SCREENING MAMMOGRAM 3D/2D WITH CAD: 01/30/2024 CLINICAL: Routine screening. Family history of breast cancer. Comparison is made to exams dated: 01/03/2023 mammogram, 12/25/2021 mammogram, and 12/18/2020 mammogram - . There are scattered areas of fibroglandular density in both breasts (category b / 25%-50% glandular tissue). Current study was also evaluated with a Computer Aided Detection (CAD) system. No significant masses, calcifications, or other findings are seen in either breast. There has been no significant interval change. IMPRESSION: NEGATIVE There is no mammographic evidence of malignancy. A 1 year screening mammogram is recommended. Based on the Tyrer Cuzick model (a risk assessment model) the patient's lifetime risk is 11.5% and her 10 year risk is 10.4%. According to the ACR, ACS, and NCCN guidelines, an annual breast MRI exam along with mammogram is recommended if the patient's lifetime risk is 20% or greater. This exam was interpreted at Station ID: [id number]. NOTE: For mammograms, a report in lay terms will be sent to the patient. Approximately 15% of breast malignancies will not be visualized mammographically. In the management of a palpable breast mass, a negative mammogram must not discourage biopsy of a clinically suspicious lesion. Electronically Signed By: Jake sosa/ana:01/30/2024 16:11:05 letter sent: Normal Exam ACR BI-RADS Category 1: Negative 3341F
--- NOTE | 2024-01-30 14:15 | DI.RAD.S_ITS ---
PROCEDURE: XR CHEST 2V INDICATIONS: COUGH TECHNIQUE: 2 views of the chest were acquired. COMPARISON: None. FINDINGS: Surgical changes and devices: None. Lungs and pleura: Lungs are clear. No pleural effusions or pneumothorax. Mediastinum: Mediastinal contours are normal. Heart size is normal. Bones and chest wall: No suspicious bony abnormalities. Soft tissues appear unremarkable. IMPRESSION: No acute cardiopulmonary abnormality is seen. Dictated by: Gracia Wayne M.D. on 01/30/2024 at 16:50 Approved by: Gracia Wayne M.D. on 01/30/2024 at 16:50
== END ==
PROVIDERS: Family Provider Internal Medicine; PCP Internal Medicine; Referring Provider Internal Medicine; Visit Provider Internal Medicine
DX: Z12.31 Encounter for screening mammogram for malignant neoplasm of breast (principal); Z80.3 Family history of malignant neoplasm of breast; R92.323 Mammographic fibroglandular density, bilateral breasts; J45.20 Mild intermittent asthma, uncomplicated; R05.2 Subacute cough
CPT/HCPCS: 71046; 77063; 77067

== ENCOUNTER → 2024-04-12 11:37 | Outpatient (CLI) | payer MEDICARE, OTHER, SELFPAY ==
--- NOTE | 2024-04-12 11:38 | DI.RAD.S_ITS ---
PROCEDURE: XR SHOULDER RT MIN 2V INDICATIONS: shoulder impingement TECHNIQUE: 3 views of the shoulder were acquired. COMPARISON: [facility], CR, XR SHOULDER LT MIN 2V, 04/12/2024, 11:39. [facility], CR, XR CHEST 2V, 01/30/2024, 14:26. FINDINGS: Bones: No fractures or dislocations. Moderate degenerative changes at the right AC joint. Mild inferior spurring. No suspicious bony lesions. Visualized ribs appear intact. Soft tissues: No suspicious soft tissue calcifications. IMPRESSION: Moderate degenerative changes at the AC joint. Dictated by: Bong Jacome M.D. on 04/12/2024 at 19:14 Approved by: Bong Jacome M.D. on 04/12/2024 at 19:16
--- NOTE | 2024-04-12 11:38 | DI.RAD.S_ITS ---
PROCEDURE: XR SHOULDER LT MIN 2V INDICATIONS: shoulder impingement TECHNIQUE: 3 views of the shoulder were acquired. COMPARISON: None. FINDINGS: Bones: No fractures or dislocations. Moderate degenerative changes at the left AC joint. No suspicious bony lesions. Visualized ribs appear intact. Soft tissues: No suspicious soft tissue calcifications. IMPRESSION: Moderate degenerative changes at the left AC joint. Dictated by: Bong Jacome M.D. on 04/12/2024 at 19:16 Approved by: Bong Jacome M.D. on 04/12/2024 at 19:17
== END ==
PROVIDERS: Family Provider Internal Medicine; PCP Internal Medicine; Referring Provider Physical Medicine & Rehabilitation; Visit Provider Physical Medicine & Rehabilitation
DX: M25.811 Other specified joint disorders, right shoulder (principal); M25.812 Other specified joint disorders, left shoulder
CPT/HCPCS: 73030

== ENCOUNTER → 2025-01-31 11:07 | Outpatient (CLI) | payer MEDICARE, OTHER, SELFPAY ==
--- NOTE | 2025-01-31 11:08 | DI.MG.S_ITS ---
MM screening mammo BI: 01/31/2025. BI-RADS: 1 CLINICAL: 74-year old female for bilateral screening mammogram. Tyrer-Cuzick lifetime risk of 2.9%. Current reported family history of breast cancer: daughter. PRIOR EXAMS 01/30/2024, 01/03/2023, 12/25/2021, 12/18/2020. MAMMOGRAPHY TECHNIQUE: 2D and 3D (tomosynthesis) digital mammographic views obtained, with additional images as needed for full coverage. Current study was also evaluated with a Computer Aided Detection (CAD) system. DENSITY B. There are scattered areas of fibroglandular density. MAMMOGRAPHY FINDINGS Bilateral: No suspicious mass, asymmetry, microcalcification, or other abnormality seen. No significant change from comparison. IMPRESSION: * No evidence of malignancy. RECOMMENDATIONS Bilateral * Annual screening mammography. OVERALL ASSESSMENT CATEGORY BI-RADS-1: Negative. The [employer] recommends annual screening mammography beginning at age 40 for women with average risk of breast cancer. ELECTRONICALLY SIGNED: Julieta Alvarez M.D. on 01/31/2025 at 02:44:48 PM PT Interpreting Station ID: [id number]
== END ==
PROVIDERS: PCP Registered Nurse; Referring Provider Registered Nurse; Visit Provider Registered Nurse
DX: Z12.31 Encounter for screening mammogram for malignant neoplasm of breast (principal); Z80.3 Family history of malignant neoplasm of breast
CPT/HCPCS: 77063; 77067